=== PATIENT | male | born 1935 | race Caucasian/White ===

== ENCOUNTER 2021-04-14 14:59 | Emergency (ER) | payer OTHER, SELFPAY ==
[2021-04-14 15:01] VITALS: BP 178/97; PULSE 58; RESP 18; TEMP 36.6; O2SAT 97; BMI 21.9
--- NOTE | 2021-04-14 15:29 | EDS_ITS ---
HPI <Dr. Sachin Gill DO - Last Filed: 04/14/21 17:48> HPI - GI History of Present Illness Chief Complaint: Abd Pain Informant: patient and spouse/S.O. Abdominal Pain/Flank Pain Onset: Days (10) Context: Gradual Onset Timing: Continuous Quality: Aching Location: RUQ Worsened by: Nothing Relieved by: Nothing Nausea/Vomiting/Emesis GI Symptom: Positive for Nausea; Negative for Vomiting Diarrhea/Melena/Hematochezia GI Symptom: Negative for Diarrhea, Melena and Hematochezia Associated Symptoms Associated Symptoms: Negative for Dysuria, Frequency and Hematuria Narrative Narrative: Patient presents with abdominal pain for the past 1-1/2 weeks. Patient states it is gradually getting worse. Patient states he was recently diagnosed with a urinary tract infection. Patient states he has been taking the antibiotics for that. Patient states his pain is worse over his right upper quadrant. Patient also admits to pain in his back. Patient states he has pain in his left lower back that radiates down his left leg. Patient also admits to some pain radiating into the right lower chest and thoracic area. Patient admits to nausea but denies any vomiting. Patient denies any diarrhea, melena, or hematochezia. Patient denies any dysuria or hematuria currently. PFSH <Dr. Sachin Gill DO - Last Filed: 04/14/21 17:48> PFSH Medical History (Updated 04/14/21 @ 21:[address] Jarvis Terrazas DO) Hypertension Home Medications ondansetron 4 mg PO Q6H PRN #20 tab 04/14/21 [Rx Last Taken Unknown] oxycodone 5 mg PO Q6H PRN 3 Days #12 tab 04/14/21 [Rx Last Taken Unknown] Allergy/AdvReac Type Severity Reaction Status Date / Time No Known Allergies Allergy Verified 04/14/21 15:04 Surgical History (Updated 04/14/21 @ 15:[address] Sachin Gill DO) History of herniorrhaphy Social History Smoking Status: Never smoker ROS <Dr. Sachin Gill DO - Last Filed: 04/14/21 17:48> ROS ED Constitutional Constitutional ED: Denies chills or fever(s) Eyes Eyes: Denies blurry vision or change in vision ENT ENT ED: Denies rhinorrhea or sore throat Cardiovascular Cardiovascular: Denies chest pain or palpitations Respiratory/Chest Respiratory/Chest: Reports dyspnea; Denies cough Gastrointestinal Gastrointestinal: Reports abdominal pain and nausea; Denies vomiting Genitourinary Genitourinary ED: Denies dysuria or hematuria Musculoskeletal Musculoskeletal: Reports back pain; Denies neck pain Integumentary Denies abscess or rash Neurologic Neurologic: Denies headache(s) or weakness Allergic/Immunologic Allergic/Immunologic ED: Denies mouth swelling or urticaria EXAM <Dr. Sachin Gill, DO - Last Filed: 04/14/21 17:48> Physical Exam Const Vital Signs: 04/14/21 15:01 Temperature 97.8 F Temperature Source Temporal Pulse Rate 58 L Respiratory Rate 18 Blood Pressure 178/97 H Blood Pressure Mean 124 Pulse Ox 97 Oxygen Delivery Method Room Air Positive well nourished and well developed General Appearance ED: well developed HEENT Reports moist mucous membranes Neck supple and no JVD Resp normal respiratory effort and clear to auscultation bilaterally Cardio regular rate and regular rhythm GI non-distended Palpation: soft and tender RUQ; Negative for guarding or rebound tenderness present Neuro CN's II-XII intact bilaterally and no sensory deficits noted Sensorium / Orientation: alert, oriented to person, oriented to place and oriented to time Motor Exam: strength 5/5 throughout Psych mental status grossly normal <Dr. Jarvis Terrazas, DO - Last Filed: 04/14/21 21:02> Physical Exam Const Vital Signs: 04/14/21 15:01 Temperature 97.8 F Temperature Source Temporal Pulse Rate 58 L Respiratory Rate 18 Blood Pressure 178/97 H Blood Pressure Mean 124 Pulse Ox 97 Oxygen Delivery Method Room Air MDM <Dr. Sachin Gill, DO - Last Filed: 04/14/21 17:48> [facility] MDM Narrative Medical decision making narrative: Patient was given IV fluids, morphine, and Zofran. EKG was obtained. On my interpretation, showed a sinus bradycardia with a rate of 59 with occasional PACs. There are nonspecific ST-T wave changes noted. There are no prior EKGs available for comparison. CBC was within normal limits. Comprehensive metabolic profile showed an elevated BUN of 38 and creatinine of 2.55. Potassium was normal at 5.1. Lipase was slightly elevated at 397. High-sensitivity troponin was 11.1. D-dimer was greater than 20. CT scan of the abdomen pelvis was ordered and is pending. Urinalysis was ordered and is pending. Care of the patient was turned over to the oncoming physician pending CT and urinalysis results. Patient will likely need admission. Lab Data Attestation: I reviewed the patient's lab results. Labs: Laboratory Results - last 24 hr 04/14/21 04/14/21 04/14/21 15:45 15:45 15:45 WBC 7.9 RBC 4.94 Hgb 14.0 Hct 43.0 MCV 87.0 MCH 28.3 MCHC 32.6 RDW Std Deviation 40.8 RDW Coeff of Loren 13.0 Plt Count 279 MPV 9.8 Immature Gran % (Auto) 0.500 Neut % (Auto) 74.6 H Lymph % (Auto) 11.9 L [place] % (Auto) 10.6 H Eos % (Auto) 1.5 Baso % (Auto) 0.9 Absolute Neuts (auto) 5.9 Absolute Lymphs (auto) 0.94 Nucleated RBC % 0 D-Dimer Quant (PE/DVT) > 20.00 H* Sodium 133 L Potassium 5.1 Chloride 100 Carbon Dioxide 24.0 Anion Gap 9 BUN 38 H Creatinine 2.55 H Estim Creat Clear Calc 19.57 Est GFR (MDRD) Af Amer 31 L Est GFR (MDRD) Non-Af 26 L BUN/Creatinine Ratio 14.9 Glucose 84 Calcium 8.7 Total Bilirubin 0.50 AST 83 H ALT 26 Alkaline Phosphatase 154 H Troponin I High Sens 11.1 Total Protein 7.1 Albumin 3.5 Globulin 3.6 Albumin/Globulin Ratio 1.0 Lipase 397 H Urine Color Urine Clarity Urine pH Ur Specific [place] Urine Protein Urine Glucose (UA) Urine Ketones Urine Occult Blood Urine Nitrite Urine Bilirubin Urine Urobilinogen Ur Leukocyte Esterase Urine RBC Urine WBC Ur Squamous Epith Cells Urine Bacteria Urine Mucus 04/14/21 18:25 WBC RBC Hgb Hct MCV MCH MCHC RDW Std Deviation RDW Coeff of Loren Plt Count MPV Immature Gran % (Auto) Neut % (Auto) Lymph % (Auto) [place] % (Auto) Eos % (Auto) Baso % (Auto) Absolute Neuts (auto) Absolute Lymphs (auto) Nucleated RBC % D-Dimer Quant (PE/DVT) Sodium Potassium Chloride Carbon Dioxide Anion Gap BUN Creatinine Estim Creat Clear Calc Est GFR (MDRD) Af Amer Est GFR (MDRD) Non-Af BUN/Creatinine Ratio Glucose Calcium Total Bilirubin AST ALT Alkaline Phosphatase Troponin I High Sens Total Protein Albumin Globulin Albumin/Globulin Ratio Lipase Urine Color Yellow Urine Clarity Clear Urine pH 6.5 Ur Specific [place] 1.010 Urine Protein 30 H Urine Glucose (UA) Normal Urine Ketones 5 H Urine Occult Blood Negative Urine Nitrite Negative Urine Bilirubin Negative Urine Urobilinogen Normal Ur Leukocyte Esterase 100 H Urine RBC 0 SEEN Urine WBC 0-5 SEEN Ur Squamous Epith Cells 0 SEEN Urine Bacteria 0 SEEN Urine Mucus 0 SEEN Radiography Diagnostic Testing: Radiology Impression Abdomen CT 04/14/21 17:12 IMPRESSION: 1. Multiple metastatic nodules of both lungs in addition to a 3.31 cm mass in the inferior aspect of the right upper lobe 2. Extensive metastatic disease throughout the liver. 3. There are several descending colonic diverticula consistent with diverticulosis. The remaining colonic loops are unremarkable. No visualized colonic mass on this exam. A small left inguinal hernia is present with a portion of the descending colon without incarceration or obstruction. Electronically Signed: Matt Melchor MD at 18:46 EDT , Service support , ADDENDUM: 04/14/211941 EKG Initial EKG: Attestation: I personally reviewed and interpreted this EKG as follows: Interpretation: Sinus Bradycardia (59 with occasional PAC) and Non- Specific ST Changes Prior EKG tracings: not available for review <Dr. Jarvis Terrazas, DO - Last Filed: 04/14/21 21:02> [facility] Narrative Medical decision making narrative: Nini: Patient signed out to me follow-up on CT scan. Results findings concerns for metastatic cancer liver in the lower lungs on abdominal CT. Discussed findings with patient and family. Pain for 10 days. However noted right shoulder pain 5 weeks ago right hip pain. Labs also notes PACO with creatinine one 2.5 they report history of PCOS with creatinine slightly elevated by her previous PCP. The currently saw the office of Dr. Still with Margie davis as nurse practitioner a week ago Tuesday with blood work drawn redrawn yesterday with unknown results. Further discussion for further images testing for further diagnostic value however they declined at this time. Discussed potential admission due to PACO however they state they would like to go home and discuss everything with family. As of right now they do not want aggressive treatment. He is given prescription for Percocet and Zofran filled through the ED to be sent home. Oxycodone given in the ED x1. I did discuss with Margie davis over the phone results were discussed. Image studies will be placed on a disc along with the report. She will call them tomorrow for best time to be seen in the office to discussed findings and their goals of care and potential palliative referral. All questions were answered. Lab Data Labs: Laboratory Results - last 24 hr 04/14/21 04/14/21 04/14/21 15:45 15:45 15:45 WBC 7.9 RBC 4.94 Hgb 14.0 Hct 43.0 MCV 87.0 MCH 28.3 MCHC 32.6 RDW Std Deviation 40.8 RDW Coeff of Loren 13.0 Plt Count 279 MPV 9.8 Immature Gran % (Auto) 0.500 Neut % (Auto) 74.6 H Lymph % (Auto) 11.9 L [place] % (Auto) 10.6 H Eos % (Auto) 1.5 Baso % (Auto) 0.9 Absolute Neuts (auto) 5.9 Absolute Lymphs (auto) 0.94 Nucleated RBC % 0 D-Dimer Quant (PE/DVT) > 20.00 H* Sodium 133 L Potassium 5.1 Chloride 100 Carbon Dioxide 24.0 Anion Gap 9 BUN 38 H Creatinine 2.55 H Estim Creat Clear Calc 19.57 Est GFR (MDRD) Af Amer 31 L Est GFR (MDRD) Non-Af 26 L BUN/Creatinine Ratio 14.9 Glucose 84 Calcium 8.7 Total Bilirubin 0.50 AST 83 H ALT 26 Alkaline Phosphatase 154 H Troponin I High Sens 11.1 Total Protein 7.1 Albumin 3.5 Globulin 3.6 Albumin/Globulin Ratio 1.0 Lipase 397 H Urine Color Urine Clarity Urine pH Ur Specific [place] Urine Protein Urine Glucose (UA) Urine Ketones Urine Occult Blood Urine Nitrite Urine Bilirubin Urine Urobilinogen Ur Leukocyte Esterase Urine RBC Urine WBC Ur Squamous Epith Cells Urine Bacteria Urine Mucus 04/14/21 18:25 WBC RBC Hgb Hct MCV MCH MCHC RDW Std Deviation RDW Coeff of [place] Plt Count MPV Immature Gran % (Auto) Neut % (Auto) Lymph % (Auto) [place] % (Auto) Eos % (Auto) Baso % (Auto) Absolute Neuts (auto) Absolute Lymphs (auto) Nucleated RBC % D-Dimer Quant (PE/DVT) Sodium Potassium Chloride Carbon Dioxide Anion Gap BUN Creatinine Estim Creat Clear Calc Est GFR (MDRD) Af Amer Est GFR (MDRD) Non-Af BUN/Creatinine Ratio Glucose Calcium Total Bilirubin AST ALT Alkaline Phosphatase Troponin I High Sens Total Protein Albumin Globulin Albumin/Globulin Ratio Lipase Urine Color Yellow Urine Clarity Clear Urine pH 6.5 Ur Specific [place] 1.010 Urine Protein 30 H Urine Glucose (UA) Normal Urine Ketones 5 H Urine Occult Blood Negative Urine Nitrite Negative Urine Bilirubin Negative Urine Urobilinogen Normal Ur Leukocyte Esterase 100 H Urine RBC 0 SEEN Urine WBC 0-5 SEEN Ur Squamous Epith Cells 0 SEEN Urine Bacteria 0 SEEN Urine Mucus 0 SEEN Radiography Diagnostic Testing: Radiology Impression Abdomen CT 04/14/21 17:12 IMPRESSION: 1. Multiple metastatic nodules of both lungs in addition to a 3.31 cm mass in the inferior aspect of the right upper lobe 2. Extensive metastatic disease throughout the liver. 3. There are several descending colonic diverticula consistent with diverticulosis. The remaining colonic loops are unremarkable. No visualized colonic mass on this exam. A small left inguinal hernia is present with a portion of the descending colon without incarceration or obstruction. Electronically Signed: Matt Melchor MD at 18:46 EDT , Service support , ADDENDUM: 04/14/21 194 Discharge Plan Triage Chief Complaint: Abd Pain ED Provider: Jarvis Terrazas Dx/Rx/DC Orders Clinical Impression: Metastatic cancer, Abdominal pain, PACO (acute kidney injury) Prescriptions: New oxycodone 5 mg tablet 5 mg PO Q6H PRN (Reason: pain) 3 Days Qty: 12 RF: 0 ondansetron 4 mg tablet,disintegrating 4 mg PO Q6H PRN (Reason: nausea and vomiting) Qty: 20 RF: 0 Primary Care Provider: Margie Davis Referrals: Margie Davis [Primary Care Provider] - 1 Day (Office will call you tomorrow for best time to be seen tomorrow in the office.) Activity Restrictions/Additional Instructions: Bring your image disc and your paperwork to the office to discuss your findings. Scan concerns for metastatic cancer your liver and your lower lungs found on CT. Disposition Disposition: Home, Self Care
--- NOTE | 2021-04-14 15:37 | EKG12_ITS ---
Test Reason : Blood Pressure : / mmHG Vent. Rate : 059 BPM Atrial Rate : 059 BPM P-R Int : 198 ms QRS Dur : 110 ms QT Int : 472 ms P-R-T Axes : 066 035 000 degrees QTc Int : 467 ms Sinus bradycardia Septal infarct , age undetermined T wave abnormality, consider anterior ischemia Abnormal ECG Confirmed by TALITA DASILVA, BLANCA ([id number]), assistant film editor JUSTIN MONTIEL ([id number]) on 04/15/2021 1:46:06 PM Referred By: RICKY Confirmed By:BLANCA SANON MD
--- NOTE | 2021-04-14 15:47 | NURSING ---
NO OLD EKGS
[2021-04-14] MEDS: Ondansetron 4 MG/2 ML Vial IV (15:54)
[2021-04-14] MEDS: 0.9% Normal Saline 1,000 ML 1000 ML IV (15:54)
[2021-04-14] MEDS: Morphine 4 MG/ML Syringe IV (15:55)
[2021-04-14 16:07] LABS: Absolute Lymphocyte Count 0.94 X10^3/uL (0.83-4.51); Absolute Neutrophil Count 5.9 X10^3/uL (2.0-7.7); Basophil# 0.07 X10^3/uL; Basophil% 0.9 % (0-1); Eosinophil# 0.12 X10^3/uL; Eosinophils% 1.5 % (0-5); Lymphocyte # 0.94 X10^3/ul (0.83-4.51); Lymphocyte % 11.9 % (19-41); Mean Corp Hgb Conc 32.6 g/dL (32-36); Mean Corpuscular Hgb 28.3 pg (27.0-32.0); Mean Platelet Vol. 9.8 fl (6.2-12.0); Monocyte# 0.84 X10^3/uL; Monocyte% 10.6 % (0-10); NRBC Flagged by Analyzer 0 % (0-5); Neutrophil % 74.6 % (47-70); Platelet Count 279 K/mm3 (150-450); RBC Distribution Width SD 40.8 fl (35.1-43.9); Red Blood Count 4.94 M/mm3 (4.6-6.2); White Blood Count 7.9 K/mm3 (4.4-11.0)
[2021-04-14 16:20] LABS: AST(SGOT) 83 U/L (15-37); Alanine Aminotransfer ALT/SGPT 26 U/L (16-61); Albumin, Serum 3.5 g/dL (3.2-5.0); Alkaline Phosphatase 154 U/L (45-117); Anion Gap 9 (5-15); BUN 38 mg/dL (7-18); BUN/Creat Ratio 14.9 RATIO (10-20); Calcium,Total 8.7 mg/dL (8.5-10.1); Chloride 100 mmol/L (98-107); Creatinine, Serum 2.55 mg/dL (0.70-1.30); EST Glomerular Filtration Rate 26 mL/min (>60); Est Glom Filt Rate - Afr Amer 31 mL/min (>60); Estimated Creatinine Clearance 19.57 ml/min; Globulin 3.6 g/dL (2.2-4.2); Glucose 84 mg/dL (74-106); Lipase 397 U/L (73-393); Potassium 5.1 mmol/L (3.5-5.1); Protein, Total 7.1 g/dL (6.4-8.2); Sodium Level 133 mmol/L (136-145); Troponin-I HS 11.1 pg/mL (3.0-78.5)
--- NOTE | 2021-04-14 17:12 | CT_ITS ---
STUDY: CT ABDOMEN AND PELVIS WITHOUT CONTRAST REASON FOR EXAM: Male, 85 years old. Abdominal pain RADIATION DOSAGE (If Supplied By Facility): CTDIvol = ( 10.08 ) mGy, DLP = ( 561.74 ) mGycm TECHNIQUE: Transaxial images were obtained from the dome of the diaphragm to the symphysis pubis with oral contrast, and without intravenous contrast. Sagittal and coronal images were reconstructed. Individualized dose optimization techniques were used for this CT. COMPARISON: None. FINDINGS: Multiple primarily small nodules are scattered throughout the bilateral lower lobes as well as the lingula compatible with metastatic disease. A 3.11 x 3.31 cm mass is present in the inferior aspect of the right upper lobe. Numerous metastatic lesions infiltrate the entire liver. Polycystic kidney disease with numerous cysts of varying size replacing most of the parenchyma of the kidneys. The largest cyst on the left this 12.7 cm and on the right 13.28 cm. No visualized hydronephrosis. Normal liver. Normal gallbladder and extrahepatic biliary system. Normal spleen. Normal pancreas. Normal bilateral adrenal glands. Normal right kidney. Normal left kidney. Normal visualized stomach. Normal small intestine. There are several descending colonic diverticula consistent with diverticulosis. The remaining colonic loops are unremarkable. No visualized colonic mass on this exam. A small left inguinal hernia is present with a portion of the descending colon without incarceration or obstruction. The appendix is visualized and appears normal. There is diffuse atherosclerotic calcification of the abdominal aorta, without a demonstrated aneurysm. Normal inferior vena cava. Normal retroperitoneum. A broad-based left posterior bladder diverticulum is present. The bladder is otherwise normal. The prostate gland is mildly enlarged. Normal abdominal wall. There are diffuse degenerative changes of the visualized lumbar spine. No visualized metastatic lesions to the bony structures. CT/Abdomen/Pel W ORAL Cont Only IMPRESSION: 1. Multiple metastatic nodules of both lungs in addition to a 3.31 cm mass in the inferior aspect of the right upper lobe 2. Extensive metastatic disease throughout the liver. 3. There are several descending colonic diverticula consistent with diverticulosis. The remaining colonic loops are unremarkable. No visualized colonic mass on this exam. A small left inguinal hernia is present with a portion of the descending colon without incarceration or obstruction. Electronically Signed: Matt Melchor MD at 18:46 EDT , Service support ,
[2021-04-14 17:23] LABS: D-Dimer Quantitative (DVT/PE) > 20.00 FEU/ug/m (0.27-0.49)
[2021-04-14 18:33] LABS: Bacteria 0 SEEN /hpf (None Seen); Mucous, Urine 0 SEEN /hpf (<or=2+); Red Blood Cells-Urine 0 SEEN /hpf (0-5); Squamous Epithelial Cells - UA 0 SEEN /hpf (0-5)
[2021-04-14 18:40] LABS: Color, Urine Yellow (Yellow); Glucose, Dipstick Normal (Normal); Ketone-Dipstick 5 mg/dl (Negative); Leukocyte Esterase-Dipstick 100 /ul (Negative); Nitrite-Dipstick Negative (Negative); Occult Blood-Urine Negative /ul (Negative); Protein-Dipstick 30 mg/dl (Negative); Urine Bilirubin Dipstick Negative (Negative); Urine Clarity Clear (Clear); Urine Urobilinogen Normal (Normal); Urine pH 6.5 (5.0 - 8.0)
[2021-04-14 18:51] LABS: White Blood Cells 0-5 SEEN /hpf (0-5)
[2021-04-14] MEDS: oxyCODONE 5 MG Tablet PO (20:27)
[2021-04-14 21:24] VITALS: BP 150/74; PULSE 80; RESP 12; O2SAT 94
== END 2021-04-14 21:25 | disposition home or self-care (01) ==
PROVIDERS: Emergency Medicine; Emergency Provider Emergency Medicine
DX: R10.9 Unspecified abdominal pain (principal); N17.9 Acute kidney failure, unspecified; C78.7 Secondary malignant neoplasm of liver and intrahepatic bile duct; I10 Essential (primary) hypertension; K40.90 Unilateral inguinal hernia, without obstruction or gangrene, not specified as recurrent; K57.30 Diverticulosis of large intestine without perforation or abscess without bleeding; Q61.3 Polycystic kidney, unspecified; Z87.440 Personal history of urinary (tract) infections
CPT/HCPCS: 74176; 80053; 81001; 83690; 84484; 85025; 85379; 93005; 96361; 96374; 96375; 99283; J7030; J2405